=== PATIENT | male | born 1990 | race Caucasian/White ===

== ENCOUNTER 2023-02-23 19:23 | Emergency (ER) | payer MEDICAID ==
[~2023-02-23] VITALS: Ht 182.9 cm; Wt 76.7 kg
[2023-02-23 19:44] VITALS: BP 114/61; TEMP 98.9
[2023-02-23] MEDS ORDERED: CLOT15CR27 TP (20:07)
[2023-02-23] MEDS ORDERED: FLUC200T PO (20:07)
[2023-02-23 21:08] VITALS: O2SAT 97
== END 2023-02-23 21:08 | disposition home or self-care (01) ==
LOC: ER 19:26
DX: B36.9 Superficial mycosis, unspecified (principal); E11.9 Type 2 diabetes mellitus without complications
CPT/HCPCS: 82962-TC; J7030

== ENCOUNTER → 2023-03-12 | Emergency (ER) | payer MEDICAID ==
[~2023-03-12] VITALS: Ht 182.9 cm; Wt 76.7 kg
[~2023-03-12] MED LIST: CLOT15CR27 TP; DIPH-530 PO; DIPH25CA83 PO; FLUC200T PO
[2023-03-12 16:52] VITALS: BP 107/57; TEMP 98.2
[2023-03-12 17:32] VITALS: O2SAT 99
== END | disposition home or self-care (01) ==
LOC: ER 16:55
DX: B35.6 Tinea cruris (principal)